=== PATIENT | male | born 1930 | race Caucasian/White ===

== ENCOUNTER 2017-05-27 15:58 | Inpatient (IN) | payer OTHER ==
[~2017-05-27] VITALS: Ht 177.8 cm; Wt 81.4 kg
[~2017-05-27 15:58] MED LIST: ASPIR 8181 M1 PO; BACTRIM,SEPT1 TABLE1 PO; CARVEDILOL6.25 MG PO; CLEOCIN300 MG PO; CRESTOR5 MG PO; CYANOCOBALAM1000 MCG PO; DOXYCYCLINE HY100 MG PO; ELIQUIS2.5 MG PO; ENDOCET 5-3251 EACH PO; HYDROCHLOROTHIA25 MG PO; ICY HOT CREAM35.4 G1 TP; IRON325 M1 PO; ISOSORBIDE MONO30 MG PO; LISINOPRIL20 MG PO; LISINOPRIL40 MG PO; LOPRESSOR25 MG PO; METOPROLOL TA37.5 MG PO; NITROSTAT0.4 MG SL; TYLENOL EXTRA500 MG PO; ULTRAM50 MG PO; VITAMIN B-1100 MG PO; VITAMIN D31000 UNIT PO; XARELTO15 MG PO
[2017-05-27 17:39] LABS: EOSINOPHIL (%) 0 % (0-5); HEMATOCRIT 35.1 % (38.0-50.0); IMMATURE GRANULOCYTE (%) 0.7 % (0.0-0.7); IMMATURE GRANULOCYTE COUNT 0.1 K/uL; INSTRUMENT ABS NEUTROPHIL CT 9.8 K/uL; MCH 30.9 PG (29.0-34.0); MCHC 30.5 G/DL (30.0-36.0); MCV 101.4 FL (86-99); MEAN PLAT.VOLUME 11.2 uM^3 (9.0-12.4); MONOCYTE (%) 9.2 % (3-12); MONOCYTE COUNT 1.1 K/uL (0-0.8); NEUTROPHIL COUNT 9.8 K/uL (1.8-6.4); NRBC (%) 0.3 /100 WBC (0-0); PLATELET COUNT 185 K/uL (156-360); RBC DIS.WIDTH-CV 18.6 % (11.8-14.6); RBC DIS.WIDTH-SD 68.8 % (39-53); RED BLOOD COUNT 3.46 M/uL (4.00-5.50); WHITE BLOOD COUNT 11.9 K/uL (4.1-10.2)
[2017-05-27 17:45] LABS: INTER. NORMALIZED RATIO 1.8; PROTHROMBIN TIME 20.3 SEC (10.2-12.9)
[2017-05-27 17:46] LABS: CHLORIDE 108 mEq/L (99-109); POTASSIUM 5.4 mEq/L (3.7-5.4); SODIUM 139 mEq/L (136-147)
[2017-05-27 17:47] LABS: PTT 25.5 SEC (25-37)
[2017-05-27 17:48] LABS: GLUCOSE 86 mg/dL (70-99)
[2017-05-27 17:49] LABS: ANION GAP 17 MEQ/L (2-14)
[2017-05-27 17:52] LABS: GFR ESTIMATE (CALCULATED) 21 mL/min/
[2017-05-27 17:53] LABS: UREA NITROGEN (BUN) 49 mg/dL (9-23)
[2017-05-27 17:54] LABS: CREATINE KINASE 479 IU/L (1-294)
[2017-05-27 17:57] LABS: TROP-I INTERPRETATION POSITIVE
[2017-05-27 17:59] LABS: TROPONIN-I 3.34 ng/mL (0.0-0.30)
[2017-05-27 19:35] LABS: ADD MIUA? YES; BILIRUBIN NEGATIVE; BLOOD MODERATE; COLOR YELLOW ((YELLOW)); GLUCOSE (STRIP) NEGATIVE; KETONES NEGATIVE; LEUKOCYTES MODERATE; NITRITE NEGATIVE; PROTEIN (STRIP) 300; UROBILINOGEN 0.2 MG/DL (0.2-1.0)
[2017-05-27 19:39] LABS: UCUL ADDED? YES; WHITE BLOOD CELLS TNTC /HPF (0-5)
[2017-05-27 21:03] LABS: MAGNESIUM 2.3 mg/dL (1.3-2.7)
[2017-05-27 21:10] VITALS: BP 117/77
[2017-05-27 23:50] VITALS: BP 134/52
[2017-05-28 01:05] LABS: TROP-I INTERPRETATION POSITIVE
[2017-05-28 01:10] LABS: TROPONIN-I 4.84 ng/mL (0.0-0.30)
[2017-05-28 02:39] LABS: INTER. NORMALIZED RATIO 2.4
[2017-05-28 03:00] VITALS: BP 88/46
[2017-05-28 03:14] LABS: PTT 150.3 SEC (25-37)
[2017-05-28 03:22] LABS: COMMENTS - BLOOD GASES C+A+; FI02 21 %; O2 FLOW 0 L/MIN; PO2 81 mm Hg (80-100); SITE LR; pH 7.32 (7.35-7.45)
[2017-05-28 03:23] LABS: PCO2 < 20 mm Hg (35-45)
[2017-05-28 04:15] VITALS: BP 131/102
[2017-05-28 04:24] VITALS: BP 107/92
[2017-05-28 04:25] VITALS: BP 107/92
[2017-05-28 04:27] LABS: HEMATOCRIT 34.1 % (38.0-50.0); MCH 30.8 PG (29.0-34.0); MCHC 29.3 G/DL (30.0-36.0); MCV 104.9 FL (86-99); MEAN PLAT.VOLUME 11.6 uM^3 (9.0-12.4); NRBC (%) 0.5 /100 WBC (0-0); PLATELET COUNT 169 K/uL (156-360); RBC DIS.WIDTH-CV 18.8 % (11.8-14.6); RBC DIS.WIDTH-SD 72.3 % (39-53); RED BLOOD COUNT 3.25 M/uL (4.00-5.50); WHITE BLOOD COUNT 17.8 K/uL (4.1-10.2)
[2017-05-28 04:36] LABS: CHLORIDE 116 mEq/L (99-109); POTASSIUM 5.7 mEq/L (3.7-5.4); SODIUM 141 mEq/L (136-147)
[2017-05-28 04:51] LABS: TROP-I INTERPRETATION POSITIVE
[2017-05-28 04:53] LABS: TROPONIN-I 4.62 ng/mL (0.0-0.30)
[2017-05-28 05:05] LABS: ANION GAP 18 MEQ/L (2-14); GLUCOSE 49 mg/dL (70-99)
[2017-05-28 05:08] LABS: GFR ESTIMATE (CALCULATED) 23 mL/min/
[2017-05-28 05:09] LABS: UREA NITROGEN (BUN) 49 mg/dL (9-23)
[2017-05-28 05:34] LABS: METH RESISTANT S AUREUS PCR NEGATIVE (NEGATIVE)
[2017-05-28 05:43] LABS: PROBE CHECK PASS; SPECIMEN PROCESSING CONTROL PASS
[2017-05-28 06:16] LABS: BASE EXCESS -11.2 mEq/L (-3 to +3); BICARBONATE 17.4 mEq/L (22-26); CARBOXY HGB 2.3 % (0-5); COMMENTS - BLOOD GASES C+A+; METHEMOGLOBIN 1.8 % (0-1.5); PCO2 51 mm Hg (35-45); PO2 74 mm Hg (80-100); SITE RB
[2017-05-28 06:17] LABS: DEVICE AMBU BAG; FI02 100 %; O2 FLOW 15 L/MIN; pH 7.14 (7.35-7.45)
== END 2017-05-28 06:57 | DRG 871 ==
LOC: EME 15:58 → 4WEST 20:02 → EDOF 20:02 → ENRESERV 20:06 → 4EAST 21:15 → ENRESERV 05-28 03:42 → 4WEST 05-28 04:08
PROVIDERS: Emergency Medicine; Internal Medicine; Internal Medicine Critical Care Medicine
PROC: 5A12012 Performance of Cardiac Output, Single, Manual (ICD-10-PCS; principal; 2017-05-28)
DX: A41.9 Sepsis, unspecified organism (principal); I46.9 Cardiac arrest, cause unspecified; I50.22 Chronic systolic (congestive) heart failure; R65.21 Severe sepsis with septic shock; N17.9 Acute kidney failure, unspecified; I48.2 Chronic atrial fibrillation; I24.8 Other forms of acute ischemic heart disease; J44.1 Chronic obstructive pulmonary disease with (acute) exacerbation; I13.0 Hypertensive heart and chronic kidney disease with heart failure and stage 1 through stage 4 chronic kidney disease, or unspecified chronic kidney disease; E78.5 Hyperlipidemia, unspecified; G31.84 Mild cognitive impairment of uncertain or unknown etiology; N18.3 Chronic kidney disease, stage 3 (moderate); N30.20 Other chronic cystitis without hematuria; E87.2 Acidosis; E87.5 Hyperkalemia; D64.9 Anemia, unspecified; I25.10 Atherosclerotic heart disease of native coronary artery without angina pectoris; I89.0 Lymphedema, not elsewhere classified; I42.0 Dilated cardiomyopathy; N18.9 Chronic kidney disease, unspecified; M19.90 Unspecified osteoarthritis, unspecified site; Z82.49 Family history of ischemic heart disease and other diseases of the circulatory system; Z87.891 Personal history of nicotine dependence
CPT/HCPCS: 31500; 36600; 70450; 71010; 71250; 73564; 74176; 80048; 80048 91; 80053; 80069; 81003; 82436; 82550; 82570; 82803; 83605; 83735; 84100; 84133; 84300; 84484; 85025; 85027; 85610; 85730; 86850; 86900; 86901; 87040; 87076; 87077; 87086; 87185; 87186; 87641; 87801; 93005; 99281; 99285; J0692; J2543; J3370; J7030; J7050; J7070; S0028